=== PATIENT | male | born 1985 | race Two or more races ===

== ENCOUNTER → 2017-11-30 | Emergency (ER) | payer OTHER ==
[~2017-11-30] VITALS: Ht 177.8 cm; Wt 106.6 kg
[~2017-11-30] MED LIST: OSEL75CA PO
== END | disposition home or self-care (01) ==
LOC: ER 18:54
DX: J11.1 Influenza due to unidentified influenza virus with other respiratory manifestations (principal); B34.9 Viral infection, unspecified